=== PATIENT | female | born 1960 | race Caucasian/White ===

== ENCOUNTER 2018-04-24 17:53 | Emergency (ER) | payer MEDICARE, MEDICAID ==
--- NOTE | 2018-04-24 18:47 | EDM.PDOC ---
<Veronica Vincent - Last Filed: 04/24/18 18:42> ED HPI GENERAL MEDICAL PROBLEM - General Chief Complaint: Lower Extremity Injury/Pain Stated Complaint: PT HURT RT FOOT Time Seen by Provider: 04/24/18 18:37 - History of Present Illness INITIAL COMMENTS - FREE TEXT/NARRATIVE: HISTORY AND PHYSICAL: History of present illness: The patient is a 57-year-old female who presents with pain to the dorsal aspect of her right foot after she pulled a shopping cart at [facility] and rolled over her foot. She was having a normal day prior to this with no systemic complaints and she has no other injuries. She became here and took no [id number] pain medications. She has no complaints of distal toe pain and no proximal heel or ankle pain. Neurosensory is intact. She's noticed some swelling to the area and she seeks evaluation. Review of systems: As per history of present illness and below otherwise all systems reviewed and negative. Past medical history: As per history of present illness and as reviewed below otherwise noncontributory. Surgical history: As per history of present illness and as reviewed below otherwise noncontributory. Social history: No reported history of drug or alcohol abuse. Family history: As per history of present illness and as reviewed below otherwise noncontributory. Physical exam: General: Well-developed well-nourished female who is nontoxic and vital signs were noted by me. HEENT: Atraumatic, normocephalic, negative for conjunctival pallor or scleral icterus, mucous membranes moist, throat clear, neck supple, nontender, trachea midline. Lungs: Clear to auscultation, breath sounds equal bilaterally, chest nontender. Heart: S1S2, regular in rhythm no overt murmurs Abdomen: Deferred Pelvis: Deferred Genitourinary: Deferred. Rectal: Deferred. Extremities: Atraumatic full range of motion of all extremities with the exception of the dorsal aspect of the right foot. At the or so midfoot there is some minimal soft tissue swelling but no ecchymosis and no palpable bony deformities. There is tenderness with palpation of this region but distally there is no metatarsal head tenderness or toe tenderness and there is no proximal heel ankle leg or knee tenderness defects or deformities. There is no crepitus appreciated on the dorsal aspect of the foot. Pulses are intact. There is good cap refill. The legs are, negative for cords or calf pain. Neurovascular unremarkable. Neuro: Awake, alert, oriented. Cranial nerves II through XII unremarkable. Cerebellum unremarkable. Motor and sensory unremarkable throughout. Exam nonfocal. Diagnostics: X-ray right foot Therapeutics: Case is endorsed to Dr. Rizo at 7 PM to follow-up x-ray results and disposition the patient. Impression: Right foot injury Definitive disposition and diagnosis as appropriate pending reevaluation and review of above. right foot Pain Score (Numeric/FACES): 8 - Related Data Allergies Allergy/AdvReac Type Severity Reaction Status Date / Time propoxyphene [From Darvon] Allergy Hives Verified 04/24/18 18:38 Home Meds: Home Meds ARIPiprazole [Abilify] 1 mg PO DAILY 04/22/17 [History] ClonazePAM [KlonoPIN] 1 mg PO BID 04/22/17 [History] FLUoxetine [PROzac] 60 mg PO DAILY 04/22/17 [History] Gabapentin [Neurontin] 300 mg pe PO BID 04/22/17 [History] Losartan [Cozaar] 25 mg PO DAILY 04/22/17 [History] Omeprazole 20 mg PO DAILY 04/22/17 [History] Oxybutynin [Oxybutynin ER] 5 mg PO DAILY 04/22/17 [History] Prazosin [Minpress] 6 mg PO DAILY 04/22/17 [History] SUMAtriptan [Imitrex] 100 mg PO ASDIRECTED PRN 04/22/17 [History] glipiZIDE [Glipizide ER] 2.5 mg PO DAILY 04/22/17 [History] metFORMIN [Glucophage XR] 1,000 mg PO BID 04/22/17 [History] Past Medical History Cardiovascular History: Reports: Hypertension Gastrointestinal History: Reports: None 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: Musculoskeletal History: Reports: None Neurological History: Reports: Migraines Psychiatric History: Reports: Anxiety, Depression, PTSD Endocrine/Metabolic History: Reports: Diabetes, Type II - Infectious Disease History Infectious Disease History: Reports: Chicken Pox - Past Surgical History Cardiovascular Surgical History: Reports: None Female Surgical History: Reports: Hysterectomy Neurological Surgical History: Reports: None Musculoskeletal Surgical History: Reports: Carpal Tunnel Other Musculoskeletal Surgeries/Procedures:: carpal tunnel surgery, back surgery , bunions Social & Family History - Family History Family Medical History: Noncontributory - Tobacco Use Smoking Status *Q: Current Every Day Smoker Years of Tobacco use: 30 Packs/Tins Daily: 1 - Caffeine Use Caffeine Use: Reports: Coffee Caffeine Use Comment: 1-2cups/day - Recreational Drug Use Recreational Drug Use: No Review of Systems - Review of Systems Review Of Systems: ROS reveals no pertinent complaints other than HPI. ED EXAM, GENERAL - Physical Exam Exam: See Below (See dictation) Course - Vital Signs Last Recorded V/S: Last Vital Signs Temp 97.4 F 04/24/18 17:53 Pulse 81 04/24/18 17:53 Resp 18 04/24/18 17:53 BP 140/86 04/24/18 17:53 Pulse Ox 98 04/24/18 17:53 - Orders/Labs/Meds Orders: Active Orders 24 hr Category Date Time Status Foot Comp Min 3V Rt [CR] Stat Exams 04/24/18 18:41 Taken Departure - Departure Disposition: Home, Self-Care 01 Condition: Good Clinical Impression: Contusion of right foot Qualifiers: Encounter type: initial encounter Qualified Code(s): S90.31XA - Contusion of right foot, initial encounter - Discharge Information Referrals: PCP,None [Primary Care Provider] - Forms: ED Department Discharge Additional Instructions: The following information is given to patients seen in the emergency department who are being discharged to home. This information is to outline your options for follow-up care. We provide all patients seen in our emergency department with a follow-up referral. The need for follow-up, as well as the timing and circumstances, are variable depending upon the specifics of your emergency department visit. If you don't have a primary care physician on staff, we will provide you with a referral. We always advise you to contact your personal physician following an emergency department visit to inform them of the circumstance of the visit and for follow-up with them and/or the need for any referrals to a consulting specialist. The emergency department will also refer you to a specialist when appropriate. This referral assures that you have the opportunity for followup care with a specialist. All of these measure are taken in an effort to provide you with optimal care, which includes your followup. Under all circumstances we always encourage you to contact your private physician who remains a resource for coordinating your care. When calling for followup care, please make the office aware that this follow-up is from your recent emergency room visit. If for any reason you are refused follow-up, please contact the [facility] emergency department at and ask to speak to the emergency department charge nurse. [facility] Specialty clinic- Podiatry [address] [place] [phone] Fax: [phone] Dr Steffany Rivera [address] [address] Ice and elevate the area and use [id number] ibuprofen for pain as you cannot take Tylenol. 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 Rizo taking over patient care at 1900. I have thoroughly been briefed on patient by Dr. Vincent. I have personally reviewed labs and other findings. I agree with the above. I have personally examined patient. Right foot x-ray revealed postoperative changes to the right great toe with some soft tissue swelling to the dorsum of the right foot. No acute osseous abnormalities. Secondary to the above patient was instructed to use rest, ice, compression, and elevation. She should also use ibuprofen for pain and inflammation patient was in agreement and was instructed to return to emergency department if she had any new or worsening symptoms and follow up with her primary care provider. Review of Systems - Review of Systems Review Of Systems: ROS reveals no pertinent complaints other than HPI. ED EXAM, GENERAL - Physical Exam Exam: See Below Departure - Departure Time of Disposition: 19:09 Condition: Good
[2018-04-24] MEDS ORDERED: HYDROmorphone 1 MG/ML Syringe IVPUSH ONE (19:20)
[2018-04-24 19:47] VITALS: BP 143/73
--- NOTE | 2018-04-25 09:21 | CR ---
EXAM DATE: 04/24/18 PATIENT'S AGE: 57 Patient: JEREL EWING Facility: [place], [place] Site . Site : 1960 Study: XRay Extremity Right foot [id number]/[id number] 6:59:55 PM Ordering Physician: Carlton Martin Final Report: INDICATION: Shopping cart ran over the foot. COMPARISON: None. TECHNIQUE: Three-view study right foot. FINDINGS: No evidence of fracture or dislocation. Soft tissue swelling overlying the dorsum of the forefoot. Postop changes with a metal screw through the base of the proximal phalanx of the great toe. Impression : No acute fracture or dislocation. 1. Postop changes right great toe. 2. Soft tissue swelling dorsum of the right forefoot. Dictated by Patricia Jennings MD @ Apr 24 2018 7:02PM (Electronic Signature) Report Signed by Proxy. PANDA
== END 2018-04-24 19:29 | disposition home or self-care (01) ==
LOC: MW.ED 17:53
DX: S90.31XA Contusion of right foot, initial encounter (principal); F17.210 Nicotine dependence, cigarettes, uncomplicated; E11.9 Type 2 diabetes mellitus without complications; I10 Essential (primary) hypertension; F32.9 Major depressive disorder, single episode, unspecified; F41.9 Anxiety disorder, unspecified; Z79.84 Long term (current) use of oral hypoglycemic drugs; Z79.899 Other long term (current) drug therapy; Z88.8 Allergy status to other drugs, medicaments and biological substances; X50.9XXA Other and unspecified overexertion or strenuous movements or postures, initial encounter
CPT/HCPCS: 73630-26-RT; 73630-RT; 99283

== ENCOUNTER 2019-04-13 13:22 | Emergency (ER) | payer MEDICARE, MEDICAID ==
[2019-04-13] MEDS ORDERED: Sodium Chloride 0.9% 2.5 ML Syringe FLUSH PRN (13:23)
[2019-04-13] MEDS ORDERED: Sodium Chloride 0.9% 10 ML Syringe FLUSH PRN (13:23)
--- NOTE | 2019-04-13 13:32 | EDM.PDOC ---
ED HPI GENERAL MEDICAL PROBLEM - General Chief Complaint: Chest Pain Stated Complaint: COUGH, SINUS PRESSURE, HEAVY CHEST Time Seen by Provider: 04/13/19 13:32 Source of Information: Reports: Patient History Limitations: Reports: No Limitations - History of Present Illness INITIAL COMMENTS - FREE TEXT/NARRATIVE: HISTORY AND PHYSICAL: History of present illness: Patient is a 50-year-old female presents to the ED with complaint of cough and chest heaviness x 2 days. She states she is coughing but can't get anything up. She has had constant heaviness in the center of her chest, does not radiate. She states she was walking around [employer] today and felt short of breath. Denies SOB with rest. States she's had chills but denies nausea, vomiting, diarrhea, abdominal pain, headache, sore throat. Past medical history significant for type 2 diabetes. Denies cardiac history. Smokes 1/2 pdd x 28 years. Review of systems: As per history of present illness and below otherwise all systems reviewed and negative. Past medical history: As per history of present illness and as reviewed below otherwise noncontributory. Surgical history: As per history of present illness and as reviewed below otherwise noncontributory. Social history: No reported history of drug or alcohol abuse. Family history: As per history of present illness and as reviewed below otherwise noncontributory. Physical exam: General: Patient sitting comfortably in no acute distress and nontoxic appearing HEENT: Atraumatic, normocephalic, pupils reactive, negative for conjunctival pallor or scleral icterus, mucous membranes moist, throat clear, neck supple, nontender, trachea midline. No meningeal signs. Lungs: diffuse rhonchi and wheezing, chest nontender. Heart: S1S2, regular, negative for clicks, rubs, or overt murmur. Abdomen: Soft, nondistended, nontender. Negative for masses or hepatosplenomegaly. Negative for costovertebral tenderness. No rigidity, rebound , guarding. Pelvis: Stable nontender. Genitourinary: Deferred. Rectal: Deferred. Extremities: Atraumatic, negative for cords or calf pain. Neurovascular unremarkable. Neuro: Awake, alert, oriented. Cranial nerves II through XII unremarkable. Cerebellum unremarkable. Motor and sensory unremarkable throughout. Exam nonfocal. Notes: Patient states chest heaviness and breathing improved with breathing treatment. We discussed admitting to observation for rule out ACS due to her chest pain. She declines at this time and understands my concerns and the risks of this. Diagnostics: CBC, CMP, troponin, PT/INR, UA, EKG, CXR Therapeutics: DuoNeb Solumedrol 125mg IV Prescriptions: Ventolin inhaler Azithromycin Medrol dose alonzo Impression: Bronchitis Plan: take medication as instructed Follow up with primary care provider Return to ED As needed as discussed Definitive disposition and diagnosis as appropriate pending reevaluation and review of above. Mid-Sternal Chest Pain Score (Numeric/FACES): 6 - Related Data Allergies Allergy/AdvReac Type Severity Reaction Status Date / Time propoxyphene [From Darvon] Allergy Hives Verified 04/13/19 13:33 varenicline [From Chantix] Allergy Hallucinati Verified 04/13/19 13:33 ons Home Meds: Home Meds ARIPiprazole [Abilify] 2 mg PO DAILY 04/22/17 [History] FLUoxetine [PROzac] 20 mg PO DAILY 04/22/17 [History] Gabapentin [Neurontin] 300 mg PO ASDIRECTED 04/22/17 [History] Losartan [Cozaar] 25 mg PO DAILY 04/22/17 [History] Omeprazole 20 mg PO DAILY 04/22/17 [History] Oxybutynin [Oxybutynin ER] 5 mg PO DAILY 04/22/17 [History] Prazosin [Minpress] 5 mg PO DAILY 04/22/17 [History] SUMAtriptan [Imitrex] 100 mg PO ASDIRECTED PRN 04/22/17 [History] glipiZIDE [Glipizide ER] 2.5 mg PO TID 04/22/17 [History] metFORMIN [Glucophage XR] 1,000 mg PO BID 04/22/17 [History] Past Medical History Cardiovascular History: Reports: Hypertension Gastrointestinal History: Reports: None 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: Musculoskeletal History: Reports: None Neurological History: Reports: Migraines Psychiatric History: Reports: Anxiety, Depression, PTSD Endocrine/Metabolic History: Reports: Diabetes, Type II - Infectious Disease History Infectious Disease History: Reports: Chicken Pox - Past Surgical History Cardiovascular Surgical History: Reports: None Female Surgical History: Reports: Hysterectomy Neurological Surgical History: Reports: None Musculoskeletal Surgical History: Reports: Carpal Tunnel Other Musculoskeletal Surgeries/Procedures:: carpal tunnel surgery, back surgery , bunions Social & Family History - Family History Family Medical History: Noncontributory - Caffeine Use Caffeine Use: Reports: Coffee Caffeine Use Comment: 1-2cups/day ED ROS GENERAL - Review of Systems Review Of Systems: ROS reveals no pertinent complaints other than HPI. ED EXAM, GENERAL - Physical Exam Exam: See Below (see dictation) Course - Vital Signs Last Recorded V/S: Last Vital Signs Temp 97.1 F 04/13/19 13:30 Pulse 93 04/13/19 13:30 Resp 20 04/13/19 13:30 BP 104/68 04/13/19 13:30 Pulse Ox 96 04/13/19 13:30 - Orders/Labs/Meds Orders: Active Orders 24 hr Category Date Time Status Cardiac Monitoring [RC] . DIRECTED Care 04/13/19 13:23 Active EKG Documentation Completion [RC] STAT Care 04/13/19 13:23 Active RT Aerosol Therapy [RC] ASDIRECTED Care 04/13/19 13:37 Active UA W/MICROSCOPIC [URIN] Stat Lab 04/13/19 13:24 Ordered Sodium Chloride 0.9% [Saline Flush] Med 04/13/19 13:23 Active 10 ml FLUSH ASDIRECTED PRN Sodium Chloride 0.9% [Saline Flush] Med 04/13/19 13:23 Active 2.5 ml FLUSH ASDIRECTED PRN Saline Lock Insert [OM.PC] Stat Oth 04/13/19 13:23 Ordered Medication Orders Sodium Chloride (Saline Flush) 10 ml FLUSH ASDIRECTED PRN PRN Reason: Keep Vein Open Sodium Chloride (Saline Flush) 2.5 ml FLUSH ASDIRECTED PRN PRN Reason: Keep Vein Open Labs: Laboratory Tests 04/13/19 04/13/19 04/13/19 Range/Units 13:30 13:30 13:30 WBC 5.94 (4.0-11.0) K/uL RBC 4.23 L (4.30-5.90) M/uL Hgb 12.9 (12.0-16.0) g/dL Hct 38.5 (36.0-46.0) % MCV 91.0 (80.0-98.0) fL MCH 30.5 (27.0-32.0) pg MCHC 33.5 (31.0-37.0) g/dL RDW Std Deviation 50.3 (28.0-62.0) fl RDW Coeff of Victor M 15 (11.0-15.0) % Plt Count 151 (150-400) K/uL MPV 10.60 (7.40-12.00) fL Neut % (Auto) 53.8 (48.0-80.0) % Lymph % (Auto) 31.6 (16.0-40.0) % Maverick % (Auto) 11.8 (0.0-15.0) % Eos % (Auto) 2.5 (0.0-7.0) % Baso % (Auto) 0.3 (0.0-1.5) % Neut # (Auto) 3.2 (1.4-5.7) K/uL Lymph # (Auto) 1.9 (0.6-2.4) K/uL Maverick # (Auto) 0.7 (0.0-0.8) K/uL Eos # (Auto) 0.2 (0.0-0.7) K/uL Baso # (Auto) 0.0 (0.0-0.1) K/uL Nucleated RBC % 0.0 /100WBC Nucleated RBCs # 0 K/uL INR 1.00 Sodium 143 (136-145) mmol/L Potassium 3.8 (3.5-5.1) mmol/L Chloride 107 (98-107) mmol/L Carbon Dioxide 24.0 (21.0-32.0) mmol/L BUN 8 (7.0-18.0) mg/dL Creatinine 0.9 (0.6-1.0) mg/dL Est Cr Clr Drug Dosing 51.41 mL/min Estimated GFR (MDRD) > 60.0 ml/min Glucose 100 (74-106) mg/dL Calcium 9.5 (8.5-10.1) mg/dL Total Bilirubin 0.4 (0.2-1.0) mg/dL AST 40 H (15-37) IU/L ALT 44 (14-63) IU/L Alkaline Phosphatase 130 H (46-116) U/L Troponin I < 0.050 (0.000-0.056) ng/mL Total Protein 7.6 (6.4-8.2) g/dL Albumin 3.5 (3.4-5.0) g/dL Globulin 4.1 H (2.6-4.0) g/dL Albumin/Globulin Ratio 0.9 (0.9-1.6) Meds: Medications Generic Name Dose Route Start Last Admin Trade Name Freq PRN Reason Stop Dose Admin Sodium Chloride 10 ml 04/13/19 13:23 Saline Flush FLUSH ASDIRECTED PRN Keep Vein Open Sodium Chloride 2.5 ml 04/13/19 13:23 Saline Flush FLUSH ASDIRECTED PRN Keep Vein Open Discontinued Medications Generic Name Dose Route Start Last Admin Trade Name Freq PRN Reason Stop Dose Admin Albuterol/Ipratropium 3 ml 04/13/19 13:37 04/13/19 13:41 Duoneb 3.0-0.5 Mg/3 Ml NEB 04/13/19 13:38 3 ml ONETIME ONE Administration Methylprednisolone Sodium Succinate 125 mg 04/13/19 13:55 04/13/19 14:06 Solu-Medrol IVPUSH 04/13/19 13:56 125 mg ONETIME ONE Administration Departure - Departure Time of Disposition: 14:35 Disposition: Home, Self-Care 01 Condition: Good Clinical Impression: Bronchitis Referrals: PCP,Unknown [Primary Care Provider] - Forms: ED Department Discharge Additional Instructions: The following information is given to patients seen in the emergency department who are being discharged to home. This information is to outline your options for follow-up care. We provide all patients seen in our emergency department with a follow-up referral. The need for follow-up, as well as the timing and circumstances, are variable depending upon the specifics of your emergency department visit. If you don't have a primary care physician on staff, we will provide you with a referral. We always advise you to contact your personal physician following an emergency department visit to inform them of the circumstance of the visit and for follow-up with them and/or the need for any referrals to a consulting specialist. The emergency department will also refer you to a specialist when appropriate. This referral assures that you have the opportunity for follow-up care with a specialist. All of these measure are taken in an effort to provide you with optimal care, which includes your follow-up. Under all circumstances we always encourage you to contact your private physician who remains a resource for coordinating your care. When calling for follow-up care, please make the office aware that this follow-up is from your recent emergency room visit. If for any reason you are refused follow-up, please contact the [facility] Emergency Department at and asked to speak to the emergency department charge nurse. [facility] [address] [place] [address] [facility] [address] [place] [address] take medication as instructed Follow up with primary care provider Return to ED As needed as discussed - My Orders Last 24 Hours: My Active Orders 04/13/19 13:23 Cardiac Monitoring [RC] . DIRECTED EKG Documentation Completion [RC] STAT Sodium Chloride 0.9% [Saline Flush] 10 ml FLUSH ASDIRECTED PRN Sodium Chloride 0.9% [Saline Flush] 2.5 ml FLUSH ASDIRECTED PRN Saline Lock Insert [OM.PC] Stat 04/13/19 13:24 UA W/MICROSCOPIC [URIN] Stat 04/13/19 13:37 RT Aerosol Therapy [RC] ASDIRECTED - Assessment/Plan Last 24 Hours: My Active Orders 04/13/19 13:23 Cardiac Monitoring [RC] . DIRECTED EKG Documentation Completion [RC] STAT Sodium Chloride 0.9% [Saline Flush] 10 ml FLUSH ASDIRECTED PRN Sodium Chloride 0.9% [Saline Flush] 2.5 ml FLUSH ASDIRECTED PRN Saline Lock Insert [OM.PC] Stat 04/13/19 13:24 UA W/MICROSCOPIC [URIN] Stat 04/13/19 13:37 RT Aerosol Therapy [RC] ASDIRECTED
[2019-04-13] MEDS ORDERED: methylPREDNISolone Sodium Succinate 125 MG/2 ML SDV IM ONE (13:37)
[2019-04-13] MEDS ORDERED: Albuterol/Ipratropium 3.0-0.5 MG/3 ML Neb Soln NEB ONE (13:37)
[2019-04-13] MEDS ORDERED: methylPREDNISolone Sodium Succinate 125 MG/2 ML SDV IVPUSH ONE (13:55)
[2019-04-13 14:01] LABS: CHLORIDE,CL 107 mmol/L (98-107); SODIUM,NA 143 mmol/L (136-145)
--- NOTE | 2019-04-13 14:21 | CR ---
Indication: Cough. Technique: PA and lateral views suggest routine. Comparison: None Findings: The heart is normal in size. The lungs are clear. No infiltrate, pleural effusion, or pneumothorax is identified. Impression: No acute cardiopulmonary process. Dictated by Dede Garrison MD @ Apr 13 2019 2:18PM Signed by Dr. Dede Garrison @ Apr 13 2019 2:19PM
[2019-04-13 14:52] VITALS: BP 114/55
== END 2019-04-13 14:51 | disposition home or self-care (01) ==
LOC: MW.ED 13:22
DX: J40 Bronchitis, not specified as acute or chronic (principal); I10 Essential (primary) hypertension; E11.9 Type 2 diabetes mellitus without complications; F41.9 Anxiety disorder, unspecified; F32.9 Major depressive disorder, single episode, unspecified; Z88.6 Allergy status to analgesic agent; Z88.8 Allergy status to other drugs, medicaments and biological substances; Z79.84 Long term (current) use of oral hypoglycemic drugs; Z79.899 Other long term (current) drug therapy
CPT/HCPCS: 36415; 71046; 80053; 84484; 85025; 85610; 93005; 94640; 96374; 99285; J2930; 99283; J7620-GY

== ENCOUNTER 2019-07-29 17:46 | Emergency (ER) | payer MEDICARE, MEDICAID ==
[2019-07-29] MEDS ORDERED: Ketorolac 60 MG/2 ML SDV IM ONE (18:06)
--- NOTE | 2019-07-29 18:09 | EDM.PDOC ---
ED HPI GENERAL MEDICAL PROBLEM - General Chief Complaint: Respiratory Problem Stated Complaint: SOB, Time Seen by Provider: 07/29/19 18:02 Source of Information: Reports: Patient History Limitations: Reports: No Limitations - History of Present Illness INITIAL COMMENTS - FREE TEXT/NARRATIVE: HISTORY AND PHYSICAL: History of present illness: Patient is a 59-year-old female presents to the ED today with concern of right- sided lower rib pain since this morning. Patient states the pain is worse when she presses on the right side of her ribs and does make her feel short of breath when she takes a big deep breath due to pain. Patient states that she did not have any trauma or injury to the ribs. Patient states she does have a history of anxiety and feels like her anxiety is increased because of the rib pain. Patient denies any other symptoms or concerns. Patient denies any chest pain. Patient denies fever, chills, chest pain, shortness of breath, or cough. Denies headache, neck stiff ness, change in vision, syncope, or near syncope. Denies nausea, vomiting, abdominal pain, diarrhea, constipation, or dysuria. Has not noted any blood in urine or stool. Patient has been eating and drinking appropriately. Review of systems: As per history of present illness and below otherwise all systems reviewed and negative. Past medical history: As per history of present illness and as reviewed below otherwise noncontributory. Surgical history: As per history of present illness and as reviewed below otherwise noncontributory. Social history: See social history for further information Family history: As per history of present illness and as reviewed below otherwise noncontributory. Physical exam: General: Patient is alert, oriented, and in no acute distress. Patient laying comfortably on exam table and anxious appearing. HEENT: Atraumatic, normocephalic, pupils equal and reactive bilaterally, negative for conjunctival pallor or scleral icterus, mucous membranes moist, TMs normal bilaterally, throat clear, neck supple, nontender, trachea midline. No drooling or trismus noted. No meningeal signs. No hot potato voice noted. Lungs: Clear to auscultation, breath sounds equal bilaterally. Moderate pain with palpation of right sided ribs #8-10 Heart: S1S2, regular rate and rhythm without overt murmur Abdomen: Soft, nondistended, nontender. Negative for masses or hepatosplenomegaly. Negative for costovertebral tenderness. Pelvis: Stable nontender. Genitourinary: Deferred. Rectal: Deferred. Skin: Intact, warm, dry. No lesions or rashes noted. Extremities: Atraumatic, negative for cords or calf pain. Neurovascular unremarkable. Neuro: Awake, alert, oriented. Cranial nerves II through XII unremarkable. Cerebellum unremarkable. Motor and sensory unremarkable throughout. Exam nonfocal. Notes: Admission for observation was offered to patient but she declines at this time. Discussed importance for follow-up with a primary care provider. Voices understanding and is agreeable to plan of care. Denies any further questions or concerns at this time. Diagnostics: CBC, CMP, UA, EKG, chest x-ray with rib x-ray, troponin Therapeutics: Toradol Prescription: None Impression: Right sided rib pain Plan: 1. Rest, ice, elevate the affected area. You can apply ice 15 minutes on, 15 minutes off. 2. Tylenol and/or Ibuprofen as directed for pain management or discomfort. 3. Follow up with the primary care provider as discussed. Return to the ED as needed and as discussed. Definitive disposition and diagnosis as appropriate pending reevaluation and review of above. R side ribs, mid cheset Pain Score (Numeric/FACES): 8 - Related Data Allergies Allergy/AdvReac Type Severity Reaction Status Date / Time propoxyphene [From Darvon] Allergy Hives Verified 07/29/19 18:49 varenicline [From Chantix] Allergy Hallucinati Verified 07/29/19 18:49 ons Home Meds: Home Meds ARIPiprazole [Abilify] 2 mg PO DAILY 04/22/17 [History] FLUoxetine [PROzac] 20 mg PO DAILY 04/22/17 [History] Gabapentin [Neurontin] 300 mg PO ASDIRECTED 04/22/17 [History] Losartan [Cozaar] 25 mg PO DAILY 04/22/17 [History] Omeprazole 20 mg PO DAILY 04/22/17 [History] Oxybutynin [Oxybutynin ER] 5 mg PO DAILY 04/22/17 [History] Prazosin [Minpress] 5 mg PO DAILY 04/22/17 [History] SUMAtriptan [Imitrex] 100 mg PO ASDIRECTED PRN 04/22/17 [History] glipiZIDE [Glipizide ER] 2.5 mg PO TID 04/22/17 [History] metFORMIN [Glucophage XR] 1,000 mg PO BID 04/22/17 [History] Past Medical History Cardiovascular History: Reports: Hypertension Gastrointestinal History: Reports: None 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: Musculoskeletal History: Reports: None Neurological History: Reports: Migraines Psychiatric History: Reports: Anxiety, Depression, PTSD Endocrine/Metabolic History: Reports: Diabetes, Type II - Infectious Disease History Infectious Disease History: Reports: Chicken Pox - Past Surgical History Cardiovascular Surgical History: Reports: None Female Surgical History: Reports: Hysterectomy Neurological Surgical History: Reports: None Musculoskeletal Surgical History: Reports: Carpal Tunnel Other Musculoskeletal Surgeries/Procedures:: carpal tunnel surgery, back surgery , bunions Social & Family History - Family History Family Medical History: Noncontributory - Caffeine Use Caffeine Use: Reports: Coffee Caffeine Use Comment: 1-2cups/day ED ROS GENERAL - Review of Systems Review Of Systems: Comprehensive ROS is negative, except as noted in HPI. ED EXAM, GENERAL - Physical Exam Exam: See Below (see dictation) Course - Vital Signs Last Recorded V/S: Last Vital Signs Temp 98.1 F 07/29/19 17:58 Pulse 89 07/29/19 17:58 Resp 24 H 07/29/19 17:58 BP 129/99 H 07/29/19 17:58 Pulse Ox 100 07/29/19 17:58 - Orders/Labs/Meds Orders: Active Orders 24 hr Category Date Time Status EKG Documentation Completion [RC] STAT Care 07/29/19 18:03 Active UA RFX VIRA AND CULT IF INDIC [URIN] Stat Lab 07/29/19 18:03 Ordered Labs: Laboratory Tests 07/29/19 07/29/19 Range/Units 18:18 18:18 WBC 11.63 H (4.0-11.0) K/uL RBC 4.36 (4.30-5.90) M/uL Hgb 13.6 (12.0-16.0) g/dL Hct 39.3 (36.0-46.0) % MCV 90.1 (80.0-98.0) fL MCH 31.2 (27.0-32.0) pg MCHC 34.6 (31.0-37.0) g/dL RDW Std Deviation 43.9 (28.0-62.0) fl RDW Coeff of Victor M 14 (11.0-15.0) % Plt Count 223 (150-400) K/uL MPV 10.70 (7.40-12.00) fL Neut % (Auto) 65.1 (48.0-80.0) % Lymph % (Auto) 26.7 (16.0-40.0) % [place] % (Auto) 6.2 (0.0-15.0) % Eos % (Auto) 1.6 (0.0-7.0) % Baso % (Auto) 0.4 (0.0-1.5) % Neut # (Auto) 7.6 H (1.4-5.7) K/uL Lymph # (Auto) 3.1 H (0.6-2.4) K/uL [place] # (Auto) 0.7 (0.0-0.8) K/uL Eos # (Auto) 0.2 (0.0-0.7) K/uL Baso # (Auto) 0.1 (0.0-0.1) K/uL Sodium 141 (136-145) mmol/L Potassium 3.5 (3.5-5.1) mmol/L Chloride 105 (98-107) mmol/L Carbon Dioxide 19.8 L (21.0-32.0) mmol/L BUN 10 (7.0-18.0) mg/dL Creatinine 1.2 H (0.6-1.0) mg/dL Est Cr Clr Drug Dosing TNP Estimated GFR (MDRD) 46.0 ml/min Glucose 173 H (74-106) mg/dL Calcium 9.3 (8.5-10.1) mg/dL Total Bilirubin 0.3 (0.2-1.0) mg/dL AST 32 (15-37) IU/L ALT 34 (14-63) IU/L Alkaline Phosphatase 127 H (46-116) U/L Troponin I < 0.050 (0.000-0.056) ng/mL Total Protein 7.8 (6.4-8.2) g/dL Albumin 4.0 (3.4-5.0) g/dL Globulin 3.8 (2.6-4.0) g/dL Albumin/Globulin Ratio 1.1 (0.9-1.6) Lipase 233 (73-393) U/L Meds: Medications Discontinued Medications Generic Name Dose Route Start Last Admin Trade Name Sakina PRN Reason Stop Dose Admin Ketorolac Tromethamine 60 mg 07/29/19 18:06 07/29/19 18:21 Toradol IM 07/29/19 18:07 60 mg ONETIME ONE Administration Departure - Departure Time of Disposition: 20:08 Disposition: Home, Self-Care 01 Clinical Impression: Rib pain on right side - Discharge Information Referrals: Mary Corbett NP [Primary Care Provider] - Forms: ED Department Discharge Additional Instructions: The following information is given to patients seen in the emergency department who are being discharged to home. This information is to outline your options for follow-up care. We provide all patients seen in our emergency department with a follow-up referral. The need for follow-up, as well as the timing and circumstances, are variable depending upon the specifics of your emergency department visit. If you don't have a primary care physician on staff, we will provide you with a referral. We always advise you to contact your personal physician following an emergency department visit to inform them of the circumstance of the visit and for follow-up with them and/or the need for any referrals to a consulting specialist. The emergency department will also refer you to a specialist when appropriate. This referral assures that you have the opportunity for follow-up care with a specialist. All of these measure are taken in an effort to provide you with optimal care, which includes your follow-up. Under all circumstances we always encourage you to contact your private physician who remains a resource for coordinating your care. When calling for follow-up care, please make the office aware that this follow-up is from your recent emergency room visit. If for any reason you are refused follow-up, please contact the [facility] Emergency Department at and asked to speak to the emergency department charge nurse. [facility] [address] [place] [id number] [address] 1. Rest, ice, elevate the affected area. You can apply ice 15 minutes on, 15 minutes off. 2. Tylenol and/or Ibuprofen as directed for pain management or discomfort. 3. Follow up with the primary care provider as discussed. Return to the ED as needed and as discussed. - My Orders Last 24 Hours: My Active Orders 07/29/19 18:03 EKG Documentation Completion [RC] STAT UA RFX VIRA AND CULT IF INDIC [URIN] Stat - Assessment/Plan Last 24 Hours: My Active Orders 07/29/19 18:03 EKG Documentation Completion [RC] STAT UA RFX VIRA AND CULT IF INDIC [URIN] Stat
[2019-07-29 19:17] LABS: BLOOD UREA NITROGEN,BUN 10 mg/dL (7.0-18.0); CARBON DIOXIDE,CO2 19.8 mmol/L (21.0-32.0); CHLORIDE,CL 105 mmol/L (98-107); GLUCOSE RANDOM 173 mg/dL (74-106); LIPASE 233 U/L (73-393); POTASSIUM,K 3.5 mmol/L (3.5-5.1); SODIUM,NA 141 mmol/L (136-145)
--- NOTE | 2019-07-29 20:05 | CR ---
INDICATION: Right-sided chest pain TECHNIQUE: Chest and right ribs 4 views. COMPARISON: Chest x-ray 04/13/2019 FINDINGS: The heart is normal in size. The pulmonary vasculature is within normal limits. The lungs are clear. Dedicated views of the ribs are negative for acute fracture. IMPRESSION: Unremarkable chest and right ribs. Dictated by Prudence Alvarado MD @ 07/29/2019 8:03:11 PM Dictated by: Prudence Alvarado MD @ 07/29/2019 20:03:21 (Electronically Signed)
[2019-07-29 20:19] VITALS: BP 116/69; PULSE 65
== END 2019-07-29 20:26 | disposition home or self-care (01) ==
LOC: MW.ED 17:46
DX: R07.81 Pleurodynia (principal); I10 Essential (primary) hypertension; E11.9 Type 2 diabetes mellitus without complications; F41.9 Anxiety disorder, unspecified; F32.9 Major depressive disorder, single episode, unspecified; F43.10 Post-traumatic stress disorder, unspecified; G43.909 Migraine, unspecified, not intractable, without status migrainosus; Z88.8 Allergy status to other drugs, medicaments and biological substances; Z79.899 Other long term (current) drug therapy; Z79.84 Long term (current) use of oral hypoglycemic drugs
CPT/HCPCS: 36415; 71101; 80053; 83690; 84484; 85025; 93005; 96372; 99285; J1885; 99283

== ENCOUNTER 2019-09-11 07:56 | Day surgery (SDC) | payer MEDICARE, MEDICAID ==
[~2019-09-11 07:56] MED LIST: Sodium Chloride 0.9% 10 ML SDV IV PRN; Sodium Chloride 0.9% 10 ML Syringe FLUSH PRN; Sodium Chloride 0.9% 2.5 ML Syringe FLUSH PRN
--- NOTE | 2019-09-11 08:29 | PCM.PREANE ---
Preanesthetic Assessment - Anesthesia/Transfusion/Family Hx Anesthesia History: Prior Anesthesia Without Reaction Family History of Anesthesia Reaction: No Transfusion History: No Prior Transfusion(s) Intubation History: Unknown - Review of Systems General: No Symptoms Pulmonary: No Symptoms Cardiovascular: No Symptoms Gastrointestinal: No Symptoms Neurological: No Symptoms Other: Reports: None - Physical Assessment Height: 5 ft 1 in Weight: 83.007 kg ASA Class: 3 Mental Status: Alert & Oriented x3 Airway Class: Mallampati = 2 Dentition: Reports: Dentures (upper and lower) Thyro-Mental Finger Breadths: 3 Mouth Opening Finger Breadths: 2 (small mouth) ROM/Head Extension: Limited/Partial Lungs: Clear to Auscultation, Normal Respiratory Effort Cardiovascular: Regular Rate, Regular Rhythm - Lab Values: Laboratory Last Values WBC 5.47 K/uL (4.0-11.0) 09/10/19 09:18 RBC 4.25 M/uL (4.30-5.90) L 09/10/19 09:18 Hgb 13.0 g/dL (12.0-16.0) 09/10/19 09:18 Hct 38.4 % (36.0-46.0) 09/10/19 09:18 MCV 90.4 fL (80.0-98.0) 09/10/19 09:18 MCH 30.6 pg (27.0-32.0) 09/10/19 09:18 MCHC 33.9 g/dL (31.0-37.0) 09/10/19 09:18 RDW Std Deviation 46.3 fl (28.0-62.0) 09/10/19 09:18 RDW Coeff of Victor M 14 % (11.0-15.0) 09/10/19 09:18 Plt Count 178 K/uL (150-400) 09/10/19 09:18 MPV 10.50 fL (7.40-12.00) 09/10/19 09:18 Nucleated RBC % 0.0 /100WBC 09/10/19 09:18 Nucleated RBCs # 0 K/uL 09/10/19 09:18 Blood Type A POSITIVE 09/10/19 09:18 Antibody Screen NEGATIVE 09/10/19 09:18 - Allergies Allergies/Adverse Reactions: Allergies Allergy/AdvReac Type Severity Reaction Status Date / Time propoxyphene [From Darvon] Allergy Hives Verified 07/29/19 18:49 varenicline [From Chantix] Allergy Hallucinati Verified 07/29/19 18:49 ons - Blood Blood Available: No - Anesthesia Plan Pre-Op Medication Ordered: None - Acknowledgements Anesthesia Type Planned: General Anesthesia Pt an Appropriate Candidate for the Planned Anesthesia: Yes Alternatives and Risks of Anesthesia Discussed w Pt/Guardian: Yes Pt/Guardian Understands and Agrees with Anesthesia Plan: Yes PreAnesthesia Questionnaire HEENT History: Reports: Other (See Below) Other HEENT History: wears glasses, top and bottom dentures Cardiovascular History: Reports: Hypertension Respiratory History: Reports: None Gastrointestinal History: Reports: GERD, Other (See Below) Other Gastrointestinal History: fatty liver Genitourinary History: Reports: None 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: Musculoskeletal History: Reports: Fracture Neurological History: Reports: None Psychiatric History: Reports: Anxiety, Depression Endocrine/Metabolic History: Reports: Diabetes, Type II, Obesity/BMI 30+ (BMI 34.6) Hematologic History: Reports: None Immunologic History: Reports: None Oncologic (Cancer) History: Reports: None Dermatologic History: Reports: None - Infectious Disease History Infectious Disease History: Reports: Chicken Pox - Past Surgical History Head Surgeries/Procedures: Reports: None HEENT Surgical History: Reports: None Cardiovascular Surgical History: Reports: None Respiratory Surgical History: Reports: None GI Surgical History: Reports: None Female Surgical History: Reports: Hysterectomy, Other (See Below) Other Female Surgeries/Procedures: hx bladder suspension with mesh Endocrine Surgical History: Reports: None Neurological Surgical History: Reports: Lumbar Spine, Other (See Below) Other Neurological Surgeries/Procedures: hx back surgery for herniated disc Musculoskeletal Surgical History: Reports: Carpal Tunnel Other Musculoskeletal Surgeries/Procedures:: carpal tunnel surgery, chris bunionectomy, rt ankle surgery, sx for rt tennis elbow Oncologic Surgical History: Reports: None Dermatological Surgical History: Reports: None - SUBSTANCE USE Smoking Status *Q: Light Tobacco Smoker (5-6 cigarettes per day) Tobacco Use Within Last Twelve Months: Cigarettes - HOME MEDS Home Medications: Home Meds ARIPiprazole [Abilify] 2 mg PO DAILY 04/22/17 [History] FLUoxetine [PROzac] 20 mg PO DAILY 04/22/17 [History] Gabapentin [Neurontin] 300 mg PO DAILY 04/22/17 [History] Losartan [Cozaar] 25 mg PO DAILY 04/22/17 [History] Oxybutynin [Oxybutynin ER] 5 mg PO DAILY 04/22/17 [History] Prazosin [Minpress] 6 mg PO BEDTIME 04/22/17 [History] metFORMIN [Glucophage XR] 1,000 mg PO DAILY 04/22/17 [History] Omeprazole 20 mg PO DAILY 09/04/19 [History] - CURRENT (IN HOUSE) MEDS Current Meds: Current Medications Sodium Chloride (Saline Flush) 10 ml FLUSH ASDIRECTED PRN PRN Reason: Keep Vein Open Sodium Chloride (Saline Flush) 2.5 ml FLUSH ASDIRECTED PRN PRN Reason: Keep Vein Open Sodium Chloride (Normal Saline) 10 ml IV ASDIRECTED PRN PRN Reason: IV Use
[2019-09-11] MEDS ORDERED: Lactated Ringers 1,000 ML IV SCH (08:45)
[2019-09-11] MEDS ORDERED: Scopolamine 1.5 MG Transdermal Patch TRDERM PRN (08:47)
[2019-09-11] MEDS ORDERED: Ondansetron 4 MG/2 ML SDV ONE (08:55)
[2019-09-11] MEDS ORDERED: Rocuronium 100 MG/10 ML Syringe ONE (08:55)
[2019-09-11] MEDS ORDERED: Midazolam 1 MG/ML 2 ML SDV ONE (08:55)
[2019-09-11] MEDS ORDERED: fentaNYL 250 MCG/5 ML SDV ONE (08:55)
[2019-09-11] MEDS ORDERED: Propofol 200 MG/20 ML SDV ONE (08:55)
[2019-09-11] MEDS ORDERED: Lidocaine 2% 5 ML SDV ONE (08:55)
[2019-09-11] MEDS ORDERED: 50% Dextrose in Water 50 ML Syringe IVPUSH PRN (09:02)
[2019-09-11] MEDS ORDERED: fentaNYL 100 MCG/2 ML SDV IVPUSH PRN (09:02)
[2019-09-11] MEDS ORDERED: Albuterol 0.083% 2.5 MG/3 ML Neb Soln NEB PRN (09:02)
[2019-09-11] MEDS ORDERED: Naloxone 0.4 MG/ML Syringe IVPUSH PRN (09:02)
[2019-09-11] MEDS ORDERED: EPINEPHrine 1:10,000 1 MG/10 ML Syringe IVPUSH PRN (09:02)
[2019-09-11] MEDS ORDERED: Atropine 0.1 MG/ML 10 ML Syringe IVPUSH PRN ×2 (09:02)
[2019-09-11] MEDS ORDERED: HYDROmorphone 2 MG/ML Syringe ONE (09:33)
[2019-09-11] MEDS ORDERED: Fluorescein 5 ML Vial ONE (10:37)
[2019-09-11] MEDS ORDERED: Octyl 2-Cyanoacrylate 1 Tube ONE (10:50)
--- NOTE | 2019-09-11 10:55 | PCM.OPNOTE ---
- General Post-Op/Procedure Note Date of Surgery/Procedure: 09/11/19 Operative Procedure(s): Dignostic Laparoscopy,BSO and Cystoscopy. Pre Op Diagnosis: L.ovarian Cyst Post-Op Diagnosis: Same Anesthesia Technique: General ET Tube, General LMA Secondary Surgeon: Nikita Eli EBL in mLs: 75 Complications: None Condition: Good
--- NOTE | 2019-09-11 10:56 | PCM.DCSUM1 ---
Discharge Summary - Hospital Course Diagnosis: Stroke: No - Discharge Data Discharge Date: 09/11/19 Discharge Disposition: Home, Self-Care 01 Condition: Good - Referral to Home Health Primary Care Physician: Mary Corbett NP - Patient Summary/Data Operative Procedure(s) Performed: Dignostic Laparoscopy,BSO and Cystoscopy. - Discharge Plan Home Medications: Home Meds ARIPiprazole [Abilify] 2 mg PO DAILY 04/22/17 [History] FLUoxetine [PROzac] 20 mg PO DAILY 04/22/17 [History] Gabapentin [Neurontin] 300 mg PO DAILY 04/22/17 [History] Losartan [Cozaar] 25 mg PO DAILY 04/22/17 [History] Oxybutynin [Oxybutynin ER] 5 mg PO DAILY 04/22/17 [History] Prazosin [Minpress] 6 mg PO BEDTIME 04/22/17 [History] metFORMIN [Glucophage XR] 1,000 mg PO DAILY 04/22/17 [History] Omeprazole 20 mg PO DAILY 09/04/19 [History] - Discharge Summary/Plan Comment DC Time >30 min.: Yes - General Info Date of Service: 09/11/19 Functional Status: Reports: Pain Controlled - Review of Systems General: Reports: No Symptoms HEENT: Reports: No Symptoms Pulmonary: Reports: No Symptoms Cardiovascular: Reports: No Symptoms Gastrointestinal: Reports: No Symptoms Genitourinary: Reports: No Symptoms Musculoskeletal: Reports: No Symptoms Skin: Reports: No Symptoms Neurological: Reports: No Symptoms Psychiatric: Reports: No Symptoms - Patient Data Vitals - Most Recent: Last Vital Signs Temp 36.4 C 09/11/19 08:38 Pulse 71 09/11/19 08:38 Resp 16 09/11/19 08:38 BP 127/75 09/11/19 08:38 Pulse Ox 96 09/11/19 08:38 Weight - Most Recent: 83.007 kg Lab Results - Last 24 hrs: Laboratory Results - last 24 hr 09/10/19 Range/Units 09:18 Blood Type A POSITIVE Antibody Screen NEGATIVE Med Orders - Current: Current Medications Albuterol (Proventil Neb Soln) 2.5 mg NEB ONETIME PRN PRN Reason: Wheezing Atropine Sulfate (Atropine 0.1 Mg/Ml) 0.5 mg IVPUSH ASDIRECTED PRN PRN Reason: Hypo-perfusion Atropine Sulfate (Atropine 0.1 Mg/Ml) 1 mg IVPUSH ASDIRECTED PRN PRN Reason: Hypo-Perfusion Dextrose/Water (Dextrose 50% In Water) 50 ml IVPUSH ASDIRECTED PRN PRN Reason: Hypoglycemia Epinephrine HCl (Epinephrine 1:10,000) 1 mg IVPUSH ASDIRECTED PRN PRN Reason: ACLS Guidelines Fentanyl (Sublimaze) 50 - 100 mcg IVPUSH Q5M PRN PRN Reason: Pain Lactated Ringer's (Ringers, Lactated) 1,000 mls @ 125 mls/hr IV ASDIRECTED JACQUIE Last Admin: 09/11/19 08:51 Dose: 125 mls/hr Naloxone HCl (Narcan) 0.1 mg IVPUSH ASDIRECTED PRN PRN Reason: Respiratory Depression Scopolamine (Transderm-Scop) 1.5 mg TRDERM .ONCE PRN PRN Reason: Post Op Nausea Last Admin: 09/11/19 09:01 Dose: 1.5 mg Sodium Chloride (Saline Flush) 10 ml FLUSH ASDIRECTED PRN PRN Reason: Keep Vein Open Sodium Chloride (Saline Flush) 2.5 ml FLUSH ASDIRECTED PRN PRN Reason: Keep Vein Open Sodium Chloride (Normal Saline) 10 ml IV ASDIRECTED PRN PRN Reason: IV Use Discontinued Medications Fentanyl (Sublimaze) Confirm Administered Dose 250 mcg .ROUTE .STK-MED ONE Stop: 09/11/19 08:56 Fluorescein Sodium (Ak-Fluor) Confirm Administered Dose 5 ml .ROUTE .STK-MED ONE Stop: 09/11/19 10:38 Hydromorphone HCl (Dilaudid) Confirm Administered Dose 2 mg .ROUTE .STK-MED ONE Stop: 09/11/19 09:34 Lidocaine (Xylocaine-Mpf 2%) Confirm Administered Dose 5 ml .ROUTE .STK-MED ONE Stop: 09/11/19 08:56 Midazolam HCl (Versed 1 Mg/Ml) Confirm Administered Dose 2 mg .ROUTE .STK-MED ONE Stop: 09/11/19 08:56 Octyl Cyanoacrylate (Dermabond Advance) Confirm Administered Dose 1 applic .ROUTE .STK-MED ONE Stop: 09/11/19 10:51 Ondansetron HCl (Zofran) Confirm Administered Dose 4 mg .ROUTE .STK-MED ONE Stop: 09/11/19 08:56 Propofol (Diprivan 20 Ml) Confirm Administered Dose 200 mg .ROUTE .STK-MED ONE Stop: 09/11/19 08:56 Rocuronium Orange (Zemuron) Confirm Administered Dose 100 mg .ROUTE .STK-MED ONE Stop: 09/11/19 08:56 - Exam General: Reports: Alert, Oriented HEENT: Reports: Pupils Equal, Pupils Reactive, EOMI, Mucous Membr. Moist/[place] Neck: Reports: Supple Lungs: Reports: Clear to Auscultation, Normal Respiratory Effort Cardiovascular: Reports: Regular Rate, Regular Rhythm GI/Abdominal Exam: Normal Bowel Sounds, Soft, Non-Tender, No Organomegaly, No Distention, No Abnormal Bruit, No Mass, Pelvis Stable (Female) Exam: Normal External Exam, Normal Speculum Exam, Normal Bimanual Exam Rectal (Female) Exam: Normal Exam, Normal Rectal Tone Back Exam: Reports: Normal Inspection, Full Range of Motion Extremities: Normal Inspection, Normal Range of Motion, Non-Tender, No Pedal Edema, Normal Capillary Refill Skin: Reports: Warm, Dry, Intact Wound/Incisions: Reports: Healing Well Neurological: Reports: No New Focal Deficit Psy/Mental Status: Reports: Alert, Normal Affect, Normal Mood
--- NOTE | 2019-09-11 11:36 | PCM.POSTAN ---
POST ANESTHESIA ASSESSMENT - MENTAL STATUS Mental Status: Alert, Oriented - VITAL SIGNS Vital Signs: Last Vital Signs Temp 37.2 C 09/11/19 11:00 Pulse 74 09/11/19 11:30 Resp 13 09/11/19 11:30 BP 116/54 L 09/11/19 11:30 Pulse Ox 97 09/11/19 11:30 - RESPIRATORY Respiratory Status: Respiratory Rate WNL, Airway Patent, O2 Saturation Stable - CARDIOVASCULAR CV Status: Pulse Rate WNL, Blood Pressure Stable - GASTROINTESTINAL GI Status: No Symptoms - PAIN Pain Score: 4 - POST OP HYDRATION Hydration Status: Adequate & Stable - OBSERVATIONS Free Text/Narrative:: no anesthesia problems
[2019-09-11] MEDS ORDERED: Acetaminophen/HYDROcodone 325-5 MG Tab PO PRN (12:27)
[2019-09-11] MEDS ORDERED: Acetaminophen/HYDROcodone 325-5 MG Tab ONE (12:32)
--- NOTE | 2019-09-11 12:33 | OR ---
SURGEON: Nikita Eli MD DATE OF PROCEDURE: PREOPERATIVE DIAGNOSES: Left ovarian cyst, suspected to be benign cyst adenoma. POSTOPERATIVE DIAGNOSIS: Left ovarian cyst, suspected to be benign cyst adenoma. OPERATIONS PERFORMED: Multiple puncture diagnostic laparoscopy, lysis of adhesion, and bilateral laparoscopic salpingectomy and cystoscopy. PRIMARY SURGEON: Nikita Eli MD. CORDUROY BRUSHER OPERATOR: OR Tech. ANESTHESIA: General. ANESTHESIOLOGIST: Tammie Madsen. ESTIMATED BLOOD LOSS: Less than 75 mL. COMPLICATIONS: None. FINDING: A 5-cm left ovarian cyst, pelvic adhesion. INDICATION FOR SURGERY: [place] referred to the admit note. PROCEDURE IN DETAIL: The patient was brought to the OR properly identified, and after adequate level of general anesthesia, patient was placed in lithotomy position with an access to the abdomen and the vagina. The patient was prepped and draped in sterile fashion as usual. Straight catheter was used to empty the bladder, and sponge and sticks placed in the vagina for manipulation. Then, operation shifted abdominally. Stab wound done beneath the umbilicus. The Veress needle was placed in the peritoneal cavity and that cavity insufflated with 3.5 L of carbon dioxide, and then utilizing the Visiport technique, a central trocar was placed in the abdomen. Once we did that, the patient was placed in steep Trendelenburg and 10/12 trocar placed in the left iliac fossa and two 5 mm trocars, one suprapubically and one in the right iliac fossa. Operation started by reflecting the intestine away from the operative field. The right tube and ovary identified and they were normal, and using the Harmonic scalpel, the superior pedicle was coagulated, transected, and right ovary and tube detached from its loose attachment to the abdomen and to the pelvis and removed. Then, attention was paid to the left tube and ovary. The left tube and ovary were buried in a dense adhesion between the sigmoid colon and the left pelvic sidewall. With sharp and blunt and hydrodissection meticulously, the left tube and ovary visualized and isolated and then the superior pedicle was coagulated with the Harmonic scalpel and then the left tube and ovary removed. Once thorough irrigation was done, there was no oozing, no bleeding. While we were doing that, we asked the Anesthesia personnel to give the patient fluorescein and then cystoscopy was performed. Both ureteric orifices seen with the dye coming from both of them. Thus, the patency of both ureters verified. Satisfied with this procedure, the instrument and hardware were retrieved from the abdomen and the vagina, and the laparoscopic incision was closed with 3-0 Vicryl. Instrument and sponge count was correct. The patient tolerated the procedure well, went to recovery room in stable general condition. CORINA / CHRIS /[id number]
[2019-09-11 12:57] VITALS: BP 113/68; PULSE 65
--- NOTE | 2019-09-11 14:00 | PCM48HPAN ---
Post Anesthesia Note - EVALUATION WITHIN 48HRS OF ANESTHETIC Vital Signs in Normal Range: Yes Patient Participated in Evaluation: Yes Respiratory Function Stable: Yes Airway Patent: Yes Cardiovascular Function Stable: Yes Hydration Status Stable: Yes Pain Control Satisfactory: Yes Nausea and Vomiting Control Satisfactory: Yes Mental Status Recovered: Yes Vital Signs: Last Vital Signs Temp 36.5 C 09/11/19 11:50 Pulse 65 09/11/19 12:55 Resp 15 09/11/19 12:55 BP 113/68 09/11/19 12:55 Pulse Ox 98 09/11/19 12:30 - COMMENTS/OBSERVATIONS Free Text/Narrative:: No anesthesia problems
== END 2019-09-11 13:40 | disposition home or self-care (01) ==
LOC: MW.SDS 07:56
PROVIDERS: ATTEND Obstetrics & Gynecology
DX: D27.1 Benign neoplasm of left ovary (principal); N83.201 Unspecified ovarian cyst, right side; N73.6 Female pelvic peritoneal adhesions (postinfective); I10 Essential (primary) hypertension; E11.9 Type 2 diabetes mellitus without complications; K21.9 Gastro-esophageal reflux disease without esophagitis; F41.9 Anxiety disorder, unspecified; F32.9 Major depressive disorder, single episode, unspecified; F17.210 Nicotine dependence, cigarettes, uncomplicated; E66.9 Obesity, unspecified; Z68.34 Body mass index [BMI] 34.0-34.9, adult; Z88.5 Allergy status to narcotic agent; Z88.8 Allergy status to other drugs, medicaments and biological substances; Z79.84 Long term (current) use of oral hypoglycemic drugs; Z79.899 Other long term (current) drug therapy
CPT/HCPCS: 36415; 58661; 82962; 85027; 86850; 86900; 86901; A9270; J1170; J2001; J2250; J2405; J2704; J3010; J7120

== ENCOUNTER 2022-11-12 12:00 | Emergency (ER) | payer MEDICARE, MEDICAID ==
[2022-11-12] MEDS ORDERED: traMADol 50 MG Tab PO ONE (13:12)
[2022-11-12 13:22] VITALS: BP 149/74
[2022-11-12 14:29] VITALS: PULSE 63
[2022-11-12 14:59] LABS: C. TRACHOMATIS BY PCR NOT DETECTED; N. GONORRHOEAE BY PCR NOT DETECTED
== END 2022-11-12 14:30 | disposition home or self-care (01) ==
LOC: MW.ED 12:00
DX: M54.50 Low back pain, unspecified (principal); I10 Essential (primary) hypertension; K21.9 Gastro-esophageal reflux disease without esophagitis; E11.9 Type 2 diabetes mellitus without complications; E66.9 Obesity, unspecified; Z68.32 Body mass index [BMI] 32.0-32.9, adult; Z88.8 Allergy status to other drugs, medicaments and biological substances; Z88.2 Allergy status to sulfonamides; Z79.84 Long term (current) use of oral hypoglycemic drugs; Z79.899 Other long term (current) drug therapy
CPT/HCPCS: 81003; 87086; 87480; 87491; 87510; 87591; 87660; 99283; A9270